=== PATIENT | male | born 1985 | race Caucasian/White ===

== ENCOUNTER 2018-12-23 10:13 | Emergency (ER) | payer MEDICAID ==
[~2018-12-23] VITALS: Ht 177.8 cm; Wt 77.1 kg
--- NOTE | 2018-12-23 10:13 | NUR ---
Arrived via [facility] with compliant of 2min tonic clonic movements after abruptly stopping heroin, methampheatmine, xanax. Placed in room 5. Placed on cardiac rn, blood pressure machine and pulse oximeter. To gown for exam. Side rails up. Report given to Vidya LADD.
--- NOTE | 2018-12-23 10:15 | NUR ---
Patient presented to ER with c/o 4 seizures. Patient presented to ER in custody [facility] Deputy Vazquez. Patient is an inmate at [facility]. [place] gave report patient had 4 witnessed seizures while in custody, Patient admits to polysubstance abuse & withdrawling from heroin and xanax 2 days since being in custody
[2018-12-23 10:21] VITALS: BP_SYST 121
[2018-12-23] MEDS ORDERED: NACL 0.9% 1,000 ML IV ONE (10:21)
--- NOTE | 2018-12-23 10:25 | NUR ---
Patient was thrashing around in bed for 30 seconds after which he was non-verbal however demonstrated guarding to arm drop test. Dr. Thibodeaux was at bedside. Patient was medicated with Ativan 2mg IVP per verbal order.
[2018-12-23] MEDS ORDERED: LORazepam 2 MG/ML VIAL (FOR ER USE) IVP ONE (10:30)
[2018-12-23] MEDS ORDERED: DIPHENHYDRAMINE INJ 50 MG/ML VIAL IVP ONE (10:30)
[2018-12-23] MEDS ORDERED: NS 1000 ML IV.SOLN IV ONE (10:30)
--- NOTE | 2018-12-23 10:30 | NUR ---
# 16 FR Cisneros catheter with use of sterile technique. Attempt unsuccessful
--- NOTE | 2018-12-23 10:30 | NUR ---
# 16 FR Cisneros catheter with use of sterile technique. Catheter could not be advanced beyond prostate. Patient was yelling and screaming, requests medication to help him relax. Patient now appears lucid and agrees to provide urine.
[2018-12-23] MEDS ORDERED: LORazepam 2 MG/ML VIAL (FOR ER USE) ONE (10:36)
--- NOTE | 2018-12-23 10:50 | NUR ---
# 14 FR Cisneros staight catheter with use of sterile technique. Immediate return of 30 cc 30 urine noted. Specimen sent to lab.
[2018-12-23 11:03] LABS: BILIRUBIN,URINE NEGATIVE (NEGATIVE); BLOOD, URINE 3+ (NEGATIVE); CLARITY/URINE SL CLOUDY (CLEAR); COLOR,URINE YELLOW (YELLOW); GLUCOSE,URINE NEGATIVE (NEGATIVE); KETONES,URINE TRACE (NEGATIVE); LEUKOCYTE ESTERASE ,URINE NEGATIVE (NEGATIVE); NITRITE, URINE NEGATIVE (NEGATIVE); PH,URINE 6.5 (5.0-8.0); PROTEIN URINE 1+ (NEGATIVE); UROBILINOGEN,URINE 0.2 (0.2-1.0)
[2018-12-23 11:23] LABS: BACTERIA,URINE FEW /HPF (None Seen); MUCUS,URINE 2+ /LPF (None Seen); RBC,URINE 50-80 /HPF (0-3); WBC,URINE 0-3 /HPF (0-3)
[2018-12-23 11:24] LABS: BARBITURATE, URINE NEGATIVE (NEG <=200); METHAMPHETAMINES SCREEN,URINE POSITIVE (NEG <=500); URINE AMPHETAMINE POSITIVE (NEG <=500); URINE METHADONE NEGATIVE (NEG <=200)
[2018-12-23 11:25] LABS: BENZODIAZEPINE, URINE POSITIVE (NEG <=150); CANNABINOID, URINE POSITIVE (NEG <=50); COCAINE, URINE NEGATIVE (NEG <=150); OPIATE, URINE POSITIVE (NEG <=100); PHENCYCLIDINE SCREEN,URINE NEGATIVE (NEG <=25); UR TRICYCLIC ANTIDEPRESSANTS NEGATIVE (NEG <=300); URINE OXYCODONE SCREEN NEGATIVE (NEG <=100); URINE PROPOXYPHENE SCREEN NEGATIVE (NEG <=300)
[2018-12-23 11:26] LABS: ANION GAP 9 (5-15); CALCIUM 10.1 mg/dL (8.4-11.0); CHLORIDE 103 mmol/L (98-107); CREATININE 0.87 mg/dL (0.55-1.30); GLUCOSE 104 mg/dL (70-99); POTASSIUM 3.7 mmol/L (3.5-5.1); SODIUM SERUM 137 mmol/L (136-145); UREA NITROGEN, BLOOD 18 mg/dL (8-21)
[2018-12-23 11:28] LABS: BASOPHILS % (AUTO) 0.2 % (0.0-2.0); EOSINOPHILS % (AUTO) 0.1 % (0.0-4.0); HEMATOCRIT 45.1 % (36-54); HEMOGLOBIN 15.5 g/dL (14.0-18.0); LYMPHOCYTES # (AUTO) 1.3 K/uL (1.0-5.5); LYMPHOCYTES % (AUTO) 13.3 % (20.5-51.5); MEAN CORPUSCULAR HEMOGLOBIN 30 pg (27-31); MEAN CORPUSCULAR HGB CONC 34 % (32-36); MEAN CORPUSCULAR VOLUME 88 fL (79.0-98.0); MONOCYTES # (AUTO) 0.4 K/uL (0.0-1.0); MONOCYTES % (AUTO) 4.3 % (1.7-9.3); NEUTROPHILS # (AUTO) 8.1 K/uL (1.8-7.7); NEUTROPHILS % (AUTO) 82.1 % (40.0-70.0); PLATELET COUNT (AUTO) 373 K/uL (130-430); RED BLOOD CELL COUNT(AUTO) 5.12 MIL/uL (4.2-6.2); RED CELL DISTRIBUTION WIDTH 14.1 % (9.0-15.0); WHITE BLOOD COUNT (AUTO) 9.8 K/uL (4.8-10.8)
[2018-12-23 11:30] LABS: ALANINE AMINOTRANSFERASE 37 U/L (12-78); ALBUMIN 4.2 g/dL (3.4-4.8); AMYLASE 51 U/L (0-100); ASPARTATE AMINOTRANSFERASE 18 U/L (10-37); LIPASE 162 U/L (73-393); PROTHROMBIN TIME 10.7 SECS (9.5-12.5); TOTAL BILIRUBIN 0.5 mg/dL (0.0-1.0)
[2018-12-23 11:31] LABS: GFR AFRICAN AMERICAN 128 mL/min (>90)
[2018-12-23 11:32] LABS: ALCOHOL, BLOOD < 3 mg/dL (<10)
--- NOTE | 2018-12-23 13:15 | NUR ---
Patient pulled out PIV from left AC, applied guaze. Cleaned site. Complete linen change. patient given blankets
--- NOTE | 2018-12-23 14:25 | NUR ---
Recieved call from Omar at [facility] who states that the patient is accepted care of Dr. Peterson based on clinical data. Report is to be called to [facility] . [facility] . Per [facility] and [place] we are to arrange transportation.
[2018-12-23 14:30] VITALS: BP_SYST 138
--- NOTE | 2018-12-23 14:30 | NUR ---
Report Given to Madeleine Coleman RN.
--- NOTE | 2018-12-23 14:40 | NUR ---
# 20 gauge angiocath placed to left AC. Use of asceptic technique. Opsite placed over site. Blood return noted. Flushed with 10 cc of normal saline. No evidence of infiltration noted. Patient tolerated well.
--- NOTE | 2018-12-23 14:50 | NUR ---
Patient requested food. Verified with Dr. Thibodeaux. [place] to give lunch PO. gave ER Lunch.
--- NOTE | 2018-12-23 15:27 | NUR ---
Report given to Tate LADD
== END 2018-12-23 19:00 | disposition short-term general hospital (02) ==
LOC: SED 10:13
DX: R56.9 Unspecified convulsions (principal); F15.10 Other stimulant abuse, uncomplicated; F11.10 Opioid abuse, uncomplicated; F13.10 Sedative, hypnotic or anxiolytic abuse, uncomplicated
CPT/HCPCS: 36415; 71045; 80053; 80307; 81000; 82150; 83605; 83690; 84484; 85025; 85610; 85730; 87040; 93005; 96374; 96375; 99285; G0482; J1200; J2060; J7030